=== PATIENT | male | born 1990 | race Caucasian/White ===

== ENCOUNTER 2018-07-19 21:32 | Emergency (ER) | payer SELFPAY ==
--- NOTE | 2018-07-19 21:46 | ER Report ---
History and Physical Time Seen By MD: 21:46 HPI/ROS CHIEF COMPLAINT: leg pain and swelling HISTORY OF PRESENT ILLNESS: This is a 27 year old male. He has had about 6 days of swelling and pain on the medial side of his right leg, distal to the knee. No injury noted. He has been trying to push through the pain and swelling and seems to be getting worse. No history of prior problems like this. No shortness of breath. No chest pain. No other musculoskeletal pain. Has normal sensation distal right leg. Allergies: Coded Allergies: No Known Drug Allergies (Unverified , 07/19/18) Home Meds No Active Prescriptions or Reported Meds Reviewed Nurses Notes: Yes Constitutional Vital Sign - Last 24 Hours 07/19/18 07/19/18 07/19/18 07/19/18 21:42 21:44 21:47 22:02 Temp 98.3 Pulse 75 70 67 Resp 16 B/P (MAP) 118/70 (86) 118/70 Pulse Ox 96 97 97 O2 Delivery Room Air 07/19/18 07/19/18 07/19/18 07/19/18 22:17 22:32 22:47 23:01 Pulse 68 71 68 B/P (MAP) 126/72 (90) Pulse Ox 95 97 96 07/19/18 07/19/18 07/19/18 07/19/18 23:02 23:17 23:30 23:35 Pulse 80 67 68 B/P (MAP) 127/59 (81) Pulse Ox 96 96 95 07/19/18 07/19/18 07/19/18 07/19/18 23:40 23:45 23:50 23:55 Pulse 71 ? Pulse Ox 96 07/20/18 07/20/18 07/20/18 07/20/18 00:00 00:05 00:09 00:10 Pulse ??? 66 73 B/P (MAP) ???/??? (1665) 122/80 (94) Pulse Ox 96 97 07/20/18 07/20/18 07/20/18 07/20/18 00:15 00:20 00:25 00:30 Pulse ??? 71 73 76 B/P (MAP) 116/73 (87) Pulse Ox 94 95 98 96 07/20/18 07/20/18 07/20/18/17/18 00:35 01:00 01:05 01:20 Pulse 79 ? B/P (MAP) ???/??? (1665) Pulse Ox 95 07/20/18 01:35 Pulse ??? Physical Exam General: Alert, no acute distress. Musculoskeletal: Pain and swelling medial lower leg about 2-3 cm below the knee. Joint line stable and non-tender with no apparent laxity. No pain with palpation over anterior tibia. Normal motor function. Skin: No skin breakdown. Swelling, but no redness or warmth associated. Cardiovascular: normal pulses and capillary refill. Neuro: Normal sensation. Medical Decision Making EKG/Imaging Imaging INDICATION: Right lower extremities pain and swelling EXAM DATE: 07/19/2018 9:49 PM COMPARISON: None. FINDINGS: 4 views right knee, 2 views right tibia and fibula. Mineralization is normal. No acute alignment abnormality or fracture. Soft tissues lateral to the fibula may be swollen. No radiopaque foreign body or acute osseous abnormality. IMPRESSION: Question soft tissue swelling lateral to the right fibula with no acute osseous abnormality of the knee, tibia and fibula. Report Dictated By: Cedric Camargo MD at 07/19/2018 10:35 PM INDICATION: Right lower extremities pain and swelling EXAM DATE: 07/19/2018 9:49 PM COMPARISON: None. FINDINGS: 4 views right knee, 2 views right tibia and fibula. Mineralization is normal. No acute alignment abnormality or fracture. Soft tissues lateral to the fibula may be swollen. No radiopaque foreign body or acute osseous abnormality. IMPRESSION: Question soft tissue swelling lateral to the right fibula with no acute osseous abnormality of the knee, tibia and fibula. Report Dictated By: Cedric Camargo MD at 07/19/2018 10:35 PM EXAMINATION: RIGHT LOWER EXTREMITY DOPPLER VENOUS ULTRASOUND DATE: 07/19/2018 9:49 PM INDICATION: Right lower extremity pain and swelling. TECHNIQUE: Grayscale, color and pulsed Doppler ultrasound was performed of the right lower extremity veins to evaluate for deep venous thrombosis. COMPARISON: None. FINDINGS: The right common femoral, superficial femoral, and popliteal veins are compressible with normal flow on color Doppler and preserved venous waveform variation where assessed. There is also normal color Doppler flow in the profunda femoris and greater saphenous veins. The right posterior tibial and peroneal veins have patent color Doppler flow. The contralateral left common femoral vein demonstrates normal flow on color Dop pler and respiratory variations on pulsed Doppler. IMPRESSION: No evidence of deep venous thrombosis in the right lower extremity. Report Dictated By: Cedric Camargo MD at 07/19/2018 11:58 PM ED Course/Re-evaluation ED Course Venogram was negative. X-rays negative. Appears inflammatory recommended ibuprofen, ice, elevation, relative rest Decision to Disposition Date: Jul 20, 2018 Decision to Disposition Time: 01:14 Depart Departure Latest Vital Signs Vital Signs Date Time Temp Pulse Resp B/P (MAP) Pulse Ox O2 Delivery O2 Flow Rate FiO2 07/20/18 01:35 ??? 07/20/18 01:00 ???/??? (1665) 07/20/18 00:35 95 07/19/18 21:44 98.3 16 Room Air Impression: Primary Impression: Musculoskeletal pain of right lower extremity Condition: Improved Disposition: HOME OR SELF-CARE New Scripts No Active Prescriptions or Reported Meds Patient Instructions: Musculoskeletal Pain (ED) Additional Instructions: There was no sign of fracture or blood clot on your evaluation today. Rest the leg, light activity is okay. Keep it elevated while at rest. Use an SHITAL wrap for compression. Increase fluid intake. Take Ibuprofen 200mg over the counter tablets, take 4 tablets with food three times a day. Follow-up with orthopedic surgery if not improving. JESUS MEYERS MD Jul 19, 2018 21:46
--- NOTE | 2018-07-19 22:41 | RADIOLOGY IMAGING REPORT ---
FACILITY: [facility] PATIENT NAME: Guru Duvall : 1990 MR: [id number] V: [id number] EXAM DATE: [id number] ORDERING PHYSICIAN: JESUS MEYERS TECHNOLOGIST: Location: [facility] - [place] Patient: Guru Duvall : 1990 Visit/Account:[id number] Date of Sevice: 07/19/2018 INDICATION: Right lower extremities pain and swelling EXAM DATE: 07/19/2018 9:49 PM COMPARISON: None. FINDINGS: 4 views right knee, 2 views right tibia and fibula. Mineralization is normal. No acute alignment abno rmality or fracture. Soft tissues lateral to the fibula may be swollen. No radiopaque foreign body or acute osseous abnormality. IMPRESSION: Question soft tissue swelling lateral to the right fibula with no acute osseous abnormal ity of the knee, tibia and fibula. Report Dictated By: Cedric Camargo MD at 07/19/2018 10:35 PM Report E-Signed By: Cedric Camargo MD at 07/19/2018 10:38 PM WSN:[id number]
--- NOTE | 2018-07-19 22:41 | RADIOLOGY IMAGING REPORT ---
FACILITY: [facility] PATIENT NAME: Guru Duvall : 1990 MR: [id number] V: [id number] EXAM DATE: [id number] ORDERING PHYSICIAN: JESUS MEYERS TECHNOLOGIST: Location: [facility] - [place] Patient: Guru Duvall : 1990 Visit/Account:[id number] Date of Sevice: 07/19/2018 INDICATION: Right lower extremities pain and swelling EXAM DATE: 07/19/2018 9:49 PM COMPARISON: None. FINDINGS: 4 views right knee, 2 views right tibia and fibula. Mineralization is normal. No acute alignment abno rmality or fracture. Soft tissues lateral to the fibula may be swollen. No radiopaque foreign body or acute osseous abnormality. IMPRESSION: Question soft tissue swelling lateral to the right fibula with no acute osseous abnormal ity of the knee, tibia and fibula. Report Dictated By: Cedric Camargo MD at 07/19/2018 10:35 PM Report E-Signed By: Cedric Camargo MD at 07/19/2018 10:38 PM WSN:[id number]
--- NOTE | 2018-07-20 00:03 | RADIOLOGY IMAGING REPORT ---
[place] [facility] [place] NAME: Guru Duvall : 1990 MR: [id number] V: [id number] EXAM DATE: [id number] ORDERING PHYSICIAN: JESUS MEYERS TECHNOLOGIST: Location: [facility] - [place] Patient: Guru Duvall : 1990 Visit/Account:[id number] Date of Sevice: 07/19/2018 EXAMINATION: RIGHT LOWER EXTREMITY DOPPLER VENOUS ULTRASOUND DATE: 07/19/2018 9:49 PM INDICATION: Right lower extremity pain and swelling. TECHNIQUE: Grayscale, color and pulsed Doppler ultrasound was performed of the right lower extremity veins to evaluate for deep venous thrombosis. COMPARISON: None. FINDINGS: The right common femoral, superficial femoral, and popliteal veins are compressible with normal flow on color Doppler and preserved venous waveform variation where assessed. There is also normal color D oppler flow in the profunda femoris and greater saphenous veins. The right posterior tibial and peroneal veins have patent color Doppler flow. The contralateral left common femoral vein demonstrates normal flow on color Doppler and respiratory variations on pulsed Doppler. IMPRESSION: No evidence of deep venous thrombosis in the right lower extremity. Report Dictated By: Cedric Camargo MD at 07/19/2018 11:58 PM Report E-Signed By: Cedric Camargo MD at 07/19/2018 11:59 PM WSN:[id number]
[2018-07-20] MEDS ORDERED: IBUPROFEN 800 MG TAB PO ONE (01:05)
== END 2018-07-20 01:35 | disposition home or self-care (01) ==
LOC: ER 21:56
DX: M79.604 Pain in right leg (principal)
CPT/HCPCS: 73564; 99284